=== PATIENT | female | born 1950 | race Caucasian/White ===

== ENCOUNTER 2022-05-12 17:11 | Emergency (ER) | payer MEDICARE ==
[2022-05-12] MEDS ORDERED: Ondansetron PF 4 MG/2 ML Vial ONE ×2 (17:54→19:06)
[2022-05-12] MEDS ORDERED: CEFAZOLIN 2 GM VIAL ONE (18:24)
[2022-05-12] MEDS ORDERED: Boostrix 0.5 ML (Tdap) VIAL (>/=7 yrs of age) ONE (18:26)
[2022-05-12 18:34] LABS: #Eosinphils 0.1 10x3/uL (0.0-0.5); #Monocytes 0.7 10x3/uL (0.0-1.1); %Basophils 0.4 % (0.0-2.0); %Eosinophils 1.1 % (0.0-6.0); %Lymphocytes 15.2 % (18.0-47.0); %Monocytes 6.3 % (0.0-10.0); %Neutrophils 76.2 % (40.0-75.0); Hemoglobin 13.2 g/dL (12.0-15.5); Mean Corpuscular HGB CONC 32.2 g/dL (32.0-36.0); Mean Corpuscular Hemoglobin 29.3 pg (27.0-33.0); Mean Corpuscular Volume 90.9 fl (81.6-98.3); Mean Platelet Volume 10.3 fl (7.4-10.4); Platelet Count 218 10x3/uL (150-450); Red Blood Cell (RBC) Count 4.51 10x6/uL (3.90-5.03); White Blood Cell (WBC) Count 10.4 10x3/uL (3.5-10.5)
[2022-05-12 18:44] LABS: PTT 22.2 sec (22.0-33.0); Prothrombin Time 10.6 sec (9.5-12.1)
[2022-05-12 18:45] LABS: ALT (SGPT) 24 U/L (8-55); AST (SGOT) 28 U/L (5-34); Alkaline Phosphatase 72 U/L (40-110); Anion Gap 16 mmol/L (10-20); BUN (Urea Nitrogen) 16 mg/dL (9.8-20.1); Bilirubin, Total 0.3 mg/dL (0.2-1.2); CK (CPK) 130 U/L (29-168); Calc. Creatinine Clearance 0 mL/min (70-130); Calcium 8.7 mg/dL (7.8-10.44); Carbon Dioxide 19 mmol/L (23-31); Chloride 107 mmol/L (98-107); Estimated GFR 74; Globulin 2.6 g/dL (2.4-3.5); Glucose 111 mg/dL (80-115); Potassium 3.3 mmol/L (3.5-5.1); Protein, Total 6.6 g/dL (5.8-8.1); Sodium 139 mmol/L (136-145)
[2022-05-12] MEDS ORDERED: Fentanyl 100 MCG/2 ML VIAL ONE (19:06)
== END 2022-05-12 19:44 | disposition short-term general hospital (02) ==
LOC: CSHERS 17:11
DX: S06.360A Traumatic hemorrhage of cerebrum, unspecified, without loss of consciousness, initial encounter (principal); S02.119A Unspecified fracture of occiput, initial encounter for closed fracture; W19.XXXA Unspecified fall, initial encounter; Z23 Encounter for immunization
CPT/HCPCS: 36415; 70450; 71260; 72125; 74177; 80053; 82550; 85025; 85610; 85730; 86850; 86900; 86901; 90471; 90715; 96365; 96375; 96376; J2405; J3010

== ENCOUNTER 2023-02-26 10:00 | Outpatient (CLI) | payer MEDICARE, OTHER | END 2023-02-26 10:01 | disposition home or self-care (01) | LOC: CSHRAD 10:00 | PROVIDERS: ATTEND Family Medicine | DX: R13.19 Other dysphagia (principal); K44.9 Diaphragmatic hernia without obstruction or gangrene; K22.4 Dyskinesia of esophagus | CPT/HCPCS: 74220 ==

== ENCOUNTER 2023-08-13 09:58 | Outpatient (CLI) | payer MEDICARE, OTHER | END 2023-08-13 09:59 | disposition home or self-care (01) | LOC: CSHMAMMO 09:58 | PROVIDERS: ATTEND Family Medicine | DX: Z12.31 Encounter for screening mammogram for malignant neoplasm of breast (principal); Z98.890 Other specified postprocedural states | CPT/HCPCS: 77063; 77067 ==